=== PATIENT | female | born 1955 | race Caucasian/White ===

== ENCOUNTER → 2021-08-04 | Outpatient (CLI) | payer SELFPAY | END | disposition home or self-care (01) | LOC: LAB SHORT 16:02 | DX: Z51.81 Encounter for therapeutic drug level monitoring (principal); Z79.899 Other long term (current) drug therapy ==

== ENCOUNTER → 2022-02-07 | Outpatient (CLI) | payer SELFPAY | END | disposition home or self-care (01) | LOC: LAB SHORT 14:52 → LAB 14:52 | PROVIDERS: Family Medicine | DX: Z51.81 Encounter for therapeutic drug level monitoring (principal); Z79.899 Other long term (current) drug therapy | CPT/HCPCS: G0480 ==

== ENCOUNTER 2024-10-09 10:26 | Day surgery (SDC) | payer OTHER ==
[~2024-10-09] VITALS: Ht 167.6 cm; Wt 47.2 kg
[~2024-10-09 10:26] MED LIST: Atropine Sulfate 0.1 MG/ML 10ML SYR ONE; DULO60 PO; EUTHYROX150 MC1 PO; Glycopyrrolate 0.2 MG/ML 1MLVIAL ONE; Lactated Ringer's 0 ML IV ONE; Lidocaine 2% 5 ML SDV ONE; Lidocaine HCl/Pf 1% 5 ML VIAL ONE; Methylene Blue 1% 100 MG/10 ML VIAL ONE; Ondansetron HCl 2 MG / ML 2ML Vial ONE; PREG75 PO; ROXICODONE15 MG PO; SPIR25 PO; ePHEDrine Sulfate 50 MG/ML 1ML Injection ONE; propofoL 0 ML IV ONE
[2024-10-09 11:57] VITALS: BP 161/87
[2024-10-09] MEDS ORDERED: Lactated Ringer's 1,000 ML IV ONE (11:59)
--- NOTE | 2024-10-09 12:57 | NUR ---
10/09/24 Mina Prietossica CASE CANCELLED BY SURGEON DUE TO PT CO-MORBIDITIES AND LUNG SOUNDS BILAT WHEEZE. PT WAS GIVEN A 25$ GIFT CARD TO ARELY GASPAR AND WALKED OUT TO THE LOBBY WHERE HER ROBNAND TOOK HER HOME AT 1231. PT IV WAS D/C'D AT 1215, IV SITE WAS [facility].
== END 2024-10-09 12:31 | disposition home or self-care (01) ==
LOC: ORSCSDS 10:26
DX: Z12.11 Encounter for screening for malignant neoplasm of colon (principal); Z53.9 Procedure and treatment not carried out, unspecified reason
CPT/HCPCS: J0461; J2003; J2405; J2704; J7120; Q9968